=== PATIENT | female | born 1975 | race Caucasian/White ===

== ENCOUNTER 2020-08-23 08:44 | Emergency (ER) | payer OTHER ==
[2020-08-23 10:26] LABS: HEMOGLOBIN 14.2 gm/dl (12.3-15.3); RED BLOOD COUNT 4.67 M/UL (4.00-5.10); WHITE BLOOD COUNT 6.4 K/UL (4.5-11.0)
[2020-08-23 10:48] LABS: BUN/CREATININE RATIO 16 (0-10)
[2020-08-23] MEDS ORDERED: PROTONIX40 MG PO (12:47)
[2020-08-23] MEDS ORDERED: BENTYL 20MG TAB20 MG PO (12:47)
[2020-08-23] MEDS ORDERED: ZOFRAN4 MG PO (12:47)
== END 2020-08-23 13:17 | disposition home or self-care (01) ==
LOC: ER1 08:44
PROVIDERS: Physician Assistant
DX: R10.13 Epigastric pain (principal); R11.2 Nausea with vomiting, unspecified; F17.210 Nicotine dependence, cigarettes, uncomplicated
CPT/HCPCS: 80053; 81001; 82150; 83690; 84703; 85025; 96374; 96375; 99284; C9113; J2405; Q9967

== ENCOUNTER → 2020-09-28 | Outpatient (CLI) | payer OTHER ==
[~2020-09-28] MED LIST: BENTYL 20MG TAB20 MG PO; PROTONIX40 MG PO; ZOFRAN4 MG PO
== END ==
LOC: EXRD 08:10
DX: M25.552 Pain in left hip (principal)
CPT/HCPCS: 73502

== ENCOUNTER → 2020-10-18 | Outpatient (CLI) | payer OTHER | LOC: CT 10-08 08:30 | DX: D18.03 Hemangioma of intra-abdominal structures (principal); R91.1 Solitary pulmonary nodule; R59.9 Enlarged lymph nodes, unspecified | CPT/HCPCS: 74170; Q9967 ==